=== PATIENT | male | born 1990 | race Caucasian/White ===

== ENCOUNTER 2022-03-09 14:55 | Emergency (ER) | payer MEDICAID ==
[~2022-03-09] VITALS: Ht 172.7 cm; Wt 98.9 kg
[2022-03-09 15:13] VITALS: BP 137/99
[2022-03-09] MEDS ORDERED: FAMOTIDINE 20 MG TAB PO ONE (15:35)
[2022-03-09] MEDS ORDERED: diphenhydrAMINE 50 MG/ML VIAL IM ONE (15:35)
[2022-03-09] MEDS ORDERED: methylPREDNISolone SS 125 MG in WATER STERILE 2 ML IM ONE (15:35)
[2022-03-09] MEDS ORDERED: diphenhydrAMINE 50 MG/ML VIAL ONE (16:50)
[2022-03-09] MEDS ORDERED: FAMOTIDINE 20 MG TAB ONE (16:50)
[2022-03-09] MEDS ORDERED: methylPREDNISolone SS 125 MG/2 ML VIAL ONE (16:50)
--- NOTE | 2022-03-09 16:53 | NUR ---
ATTEMPTED TO CALL PATIENT, NO ANSWER AT THIS TIME
--- NOTE | 2022-03-09 17:01 | NUR ---
ATTEMPTED TO CALL PATIENT, NO RESPONSE
--- NOTE | 2022-03-09 17:02 | NUR ---
ATTEMPTED TO CALL PATENT PHONE, NO ANSWER. PRISCILA LEFT
--- NOTE | 2022-03-09 17:07 | NUR ---
PATIENT ELOPED FROM FACILITY. DISCHARGE INSTRUCTIONS NOT GIVEN TO PATIENT. KAYLA CASTELAN NOTIFIED.
== END 2022-03-09 17:07 | disposition left against medical advice (07) ==
LOC: MED 14:55
DX: L50.0 Allergic urticaria (principal); F17.210 Nicotine dependence, cigarettes, uncomplicated; Z53.21 Procedure and treatment not carried out due to patient leaving prior to being seen by health care provider
CPT/HCPCS: 99281; J1200; J2930

== ENCOUNTER 2024-06-13 20:16 | Emergency (ER) | payer MEDICAID ==
[~2024-06-13] VITALS: Ht 172.7 cm; Wt 81.6 kg
[2024-06-13 20:26] VITALS: BP 142/71; PULSE 92; RESP 18; TEMP 98.3; O2SAT 99
== END 2024-06-13 21:00 | disposition left against medical advice (07) ==
LOC: MED 20:16
DX: K08.89 Other specified disorders of teeth and supporting structures (principal); Z53.21 Procedure and treatment not carried out due to patient leaving prior to being seen by health care provider